=== PATIENT | male | born 1975 | race Caucasian/White ===

== ENCOUNTER 2019-01-10 15:11 | Emergency (ER) | payer MEDICAID, OTHER ==
[2019-01-10 15:44] VITALS: BP 138/84
--- NOTE | 2019-01-10 16:44 | UC ---
Knee Pain HPI - HPI Summary HPI Summary: 6 MONTH AGO PT WAS WALKING DOWN SOME STEPS WHEN HE FELT "A RUBBER BAND SNAPPED" OVER THE INSIDE OF HIS RIGHT KNEE. THAT REMAINED UNCOMFORTABLE FOR ABOUT 3 DAYS THEN SEEMED BETTER. AROUND 2017, HE SQUATTED AND UPON STANDING, HE GOT PAIN TO HIS R INNER KNEE. HE HAS HAD SOME DISCOMFORT EVER SINCE. THE KNEE WILL SOMETIMES GIVE OUT. HE ADMITS TO A SENSE OF LOCKING AT TIMES WELL. HE HAS AN OTC KNEE WRAP WHICH SEEMS TO HELP. - History of Current Complaint Chief Complaint: UCLowerExtremity Stated Complaint: RIGHT KNEE PAIN Time Seen by Provider: 01/10/19 16:33 Hx Obtained From: Patient Pain Intensity: 2 Aggravating Factor(s): Movement, Weight Bearing Able to Bear Weight: Yes - Allergies/Home Medications Allergies/Adverse Reactions: Allergies Allergy/AdvReac Type Severity Reaction Status Date / Time No Known Allergies Allergy Verified 01/10/19 15:36 Home Medications: Home Medications Aspirin EC TAB* [Ecotrin EC Low Dose 81 MG*] 1 tab DAILY 01/10/19 [History Confirmed 01/10/19] PMH/Surg Hx/FS Hx/Imm Hx Cardiovascular History: Hypertension, Myocardial Infarction Other History Of: Negative For: Anticoagulant Therapy - Surgical History Surgical History: Yes Surgery Procedure, Year, and Place: age 11, OPEN REDUCTION INTERNAL FIXATION RIGHT RADIUS, [facility] - Family History Known Family History: Positive: Non-Contributory - Social History Alcohol Use: Occasionally Alcohol Amount: MONTHLY Substance Use Type: Marijuana Substance Use Comment - Amount & Last Used: MARIJUANA; 01/10/19 Smoking Status (MU): Former Smoker Type: Cigarettes Have You Smoked in the Last Year: No Household Exposure Type: Cigarettes - Immunization History Most Recent Influenza Vaccination: refused Most Recent Tetanus Shot: unk Most Recent Pneumonia Vaccination: never Review of Systems All Other Systems Reviewed And Are Negative: No Constitutional: Negative: Fever Musculoskeletal: Negative: Decreased ROM, Edema Neurological: Negative: Paresthesia, Numbness Physical Exam Triage Information Reviewed: Yes Appearance: Well-Appearing Vital Signs: Initial Vital Signs Temp 98 F 01/10/19 15:38 Pulse 79 01/10/19 15:38 Resp 16 01/10/19 15:38 BP 138/84 01/10/19 15:38 Pulse Ox 96 01/10/19 15:38 Vital Signs Reviewed: Yes Eyes: Positive: Conjunctiva Clear Neck: Positive: Supple Respiratory: Positive: No respiratory distress Cardiovascular: Positive: RRR Musculoskeletal: Positive: Other: - RLE COMPARED TO LLE: SLIGHT SWELLING TO MEDIAL R KNEE. RLE=HIP, ANKLE AND FOOT ARE NON TENDER. R KNEE=TENDER OVER MEDIAL JOINT LINE, MCL AND MEDIAL/PROXIMAL TIBIAL TUBEROSITY. PATELLA NOT BALLOTABLE AND NO GRIND. ROM IS INTACT BUT PT C/O PAIN WITH FULL FLEXION AND FULL EXTENSION. THERE IS NOT OVERT LIGAMENT INSTABILITY BUT PT C/O PAIN THE MCL WITH STRESSING. Neurological: Positive: Alert Psychological: Positive: Age Appropriate Behavior Skin Exam: Normal Skin: Negative: Rashes Knee Pain Course/Dx - Differential Dx/Diagnosis Differential Diagnosis/HQI/PQRI: Other - NO CONCERN FOR FX OR INFECTION. HX AND PE RAISE CONCERN FOR A MENISCAL INJURY, MCL INJURY AND POSSIBLE PER ANSERINE BURSITIS. WILL TX WITH NSAID, LILLIE AND CRUTCHES PLUS ORTHOPEDIC F/U. XRAY NOT DONE DUE TO NO ACUTE INJURY. Provider Diagnosis: Right knee pain Discharge - Sign-Out/Discharge Documenting (check all that apply): Patient Departure All imaging exams completed and their final reports reviewed: No Studies - Discharge Plan Condition: Stable Disposition: HOME Prescriptions: Naproxen [Naprosyn 500 mg tab] 500 mg PO BID 5 Days #10 tablet Patient Education Materials: Knee Pain (ED) Referrals: Umang Ledezma MD [Medical Doctor] - As Soon As Possible Additional Instructions: USE LILLIE DURING DAY, REMOVE AT BEDTIME. USE CRUTCHES UNTIL CLEARED. - Billing Disposition and Condition Condition: STABLE Disposition: Home - Attestation Statements Provider Attestation: Patient not seen by me. I was available for consult. I did not disposition this patient
== END 2019-01-10 17:11 | disposition home or self-care (01) ==
LOC: UCCORT 15:11
DX: M25.561 Pain in right knee (principal); I10 Essential (primary) hypertension; I25.2 Old myocardial infarction; Z87.891 Personal history of nicotine dependence; Z79.82 Long term (current) use of aspirin
CPT/HCPCS: 99212; G0463

== ENCOUNTER 2019-02-28 07:51 | Day surgery (SDC) | payer OTHER ==
[~2019-02-28 07:51] MED LIST: Buffered Lidocaine 1% SYRIN* 1 ML/SYRINGE INTRADERM ONE; Dexamethasone IV* 4 MG/ML 1 ML (4 MG) IV SLOW PU ONE; Dexamethasone IV* 4 MG/ML 1 ML (4 MG) ONE; Famotidine IV* 10 MG/ML 2 ML (20 mg) IV ONE; Famotidine IV* 10 MG/ML 2 ML (20 mg) ONE; Lactated Ringers 1000 ML Bag* 1,000 ML IV SCH
[2019-02-28] MEDS ORDERED: ceFAZolin 2 GM PREMIX in ORs 2 GM/50 ML BAG ONE (07:59)
[2019-02-28] MEDS ORDERED: Lidocaine 1%* 5 ML VIAL ONE (08:42)
[2019-02-28] MEDS ORDERED: Phenylephrine OPHTH SOL 2.5%* 2 ML ONE (08:42)
[2019-02-28] MEDS ORDERED: acetaZOLAMIDE TAB* 250 MG ONE (08:42)
[2019-02-28] MEDS ORDERED: Tropicamide 1% OPTH.SOL* BTL ONE (08:42)
[2019-02-28] MEDS ORDERED: Neomycin/Polymy/Dex OPHTH.OIN* 3.5 GM ONE (08:42)
[2019-02-28] MEDS ORDERED: Povidone Iodine 5% OPTH* 30 ML BTL ONE (08:42)
[2019-02-28] MEDS ORDERED: Cyclopentolate 1% OPTH.SOL* 2 ML BTL ONE (08:42)
[2019-02-28] MEDS ORDERED: Ketorolac 0.5% OPHTH (NF) 0.5 % 5 ML BTL ONE (08:42)
[2019-02-28] MEDS ORDERED: Tetracaine 0.5% OPTH.SOL 4 ML* 1 DROP BTL ONE (08:42)
[2019-02-28] MEDS ORDERED: Ropivacaine 0.2% * 2 MG/ML VIAL ONE (09:42)
[2019-02-28] MEDS ORDERED: Lidocaine 1% MPF wEPI 200,000* 30 ML SDV ONE (09:42)
[2019-02-28] MEDS ORDERED: Midazolam* 1 MG/ML 2 ML VIAL (2 MG) ONE (09:49)
[2019-02-28] MEDS ORDERED: fentaNYL* 50 MCG/ML 2 ML VIAL (100 MCG VIAL) ONE ×2 (09:49→10:30)
[2019-02-28] MEDS ORDERED: Propofol* 10 MG/ML 20 ML BTL ONE (09:51)
[2019-02-28] MEDS ORDERED: Lidocaine 2% PF * 5 ML VIAL ONE (09:51)
[2019-02-28] MEDS ORDERED: Ondansetron INJ* 2 MG/ML VIAL ONE (09:51)
[2019-02-28] MEDS ORDERED: DiMENhydriNATE IV* 50 MG/ML VIAL IV PUSH PRN (09:57)
[2019-02-28] MEDS ORDERED: Naloxone* 0.4 MG/ML 1 ML VIAL IV PRN (09:57)
[2019-02-28] MEDS ORDERED: fentaNYL* 50 MCG/ML 2 ML VIAL (100 MCG VIAL) IV PRN (09:57)
[2019-02-28] MEDS ORDERED: Aspirin EC TAB* 81 MG TAB.EC PO ONE (09:58)
[2019-02-28] MEDS ORDERED: Aspirin 81 mg CHEW TAB* 81 MG TAB.CHEW ONE (11:29)
[2019-02-28] MEDS ORDERED: Acetaminophen TAB* 325 MG ONE (11:30)
--- NOTE | 2019-02-28 12:12 | OP ---
OPERATIVE REPORT: DATE OF OPERATION: 02/28/19 DATE OF : 71 SURGEON: Nathanael Davis MD DIRECTOR OF INFECTION CONTROL: None available. PRE-OP DIAGNOSIS: Right knee medial meniscus displaced tear. POST-OP DIAGNOSIS: Right knee medial meniscus displaced tear. OPERATIVE PROCEDURE: Right knee arthroscopy with partial medial meniscectomy and chondroplasty of the patella and medial aspect of the medial femoral condyle as well as synovectomy of the anterior, medial, and lateral compartments. COMPLICATIONS: None. ESTIMATED BLOOD LOSS: Minimal. INDICATIONS: Jonatan Winn is a 43-year-old male who sustained injury to his right knee in May. When he slipped off the floor, she had persistent pain , catching, and locking sensation. He failed conservative measures including physical therapy, antiinflammatories, ice and heat. He has elected to proceed with surgical treatment. Risks and benefits were discussed at length including , but not limited to bleeding, infection, damage to nerves, vessels, surrounding structures, wound healing, persistent pain, need for further surgery , scarring, stiffness, incomplete relief of symptoms, risk of anesthesia. The patient also has a previous cardiac history, underwent risk optimization by doctors. DESCRIPTION OF PROCEDURE: The patient was greeted in the preoperative area by the attending surgeon. Correct extremity was marked and consent was confirmed. The patient was brought back to the operating suite, where he was placed in supine position on the operating table and underwent general anesthesia and LMA intubation, after which he was appropriately positioned in bed. The lateral post was positioned. The unsterile tourniquet was placed high on the proximal thigh. The right leg was then prepped and draped in the usual sterile fashion beginning with chlorhexidine soap, scrub, and alcohol wipe and a final prep with ChloraPrep. After appropriate surgical pause indicating side, site, procedure, administration of antibiotics, the knee was intraarticularly injected with 1% lidocaine with epi. The lateral portal was made in an outside-in fashion. The anterolateral portal was made using an 11 blade. The scope was brought into the joint and examined. There was abundant synovitis that was present. The anteromedial portal was then established after using an 18 gauge for localization. Shaver was used to remove the abundant significant fat pad that was present and synovitis. There was plica laterally as well as medially. Shaver was used to debride this back. He had a small prepatellar bursa as well , which was definitely inflated or became saturated with water as well. The ACL and PCL were intact. There was abundant synovitic tissue and electrocautery device was used to maintain hemostasis at all times. The patellofemoral joint had grade 0 to 1 changes except for the medial aspect had small area of grade 2 changes. This was debrided back using shaver. Medial and lateral gutters were intact. This was exposed after finally removing abundant synovitis and plica. The scope was brought into the medial compartment. There was evidence of a parrot-beak tear. It was snapped and tied into the gutter. The biters and ovi were used to debride this back. He lost approximately 35% to 40% of the meniscus. It was extended to the shaver. Biters were used to debride this back. Once this was complete, it was probed and the remainder of the meniscus was found to be intact. There was a small area in the weightbearing zone about the medial aspect of the medial femoral condyle with grade 2 changes. This was debrided back using a shaver. The ACL and PCL were intact. The knee was placed in [id number] position. The lateral femoral condyle had grade 1 to 2 changes. Lateral plateau had grade 2 changes. Lateral meniscus was intact without significant wear. All fluid . Once the debridement was complete and hemostasis was maintained, the knee was then thoroughly lavaged, removed of any loose debris. The wounds were then copiously irrigated with sterile saline. Portals were closed with 3-0 nylon. Sterile dressings were applied. The knee was intraarticularly and superficially injected with 0.2% ropivacaine. The patient was then awoken from anesthesia and transferred to PACU in stable condition. POSTOPERATIVE PLAN: He will be weightbearing as tolerated with crutches for the first 4 to 5 days, discharged on pain medication. DVT prophylaxis was considered but deferred due to no previous personal or family history. I will put him on a large aspirin for the first 2 weeks. I will see the patient back in 10 to 14 days. [id number]/[facility] #: [id number] ROBBY
[2019-02-28 12:33] VITALS: BP 112/77
== END 2019-02-28 12:30 | disposition home or self-care (01) ==
LOC: OREAST 07:51
PROVIDERS: ATTEND Orthopaedic Surgery
DX: S83.241A Other tear of medial meniscus, current injury, right knee, initial encounter (principal); W01.0XXA Fall on same level from slipping, tripping and stumbling without subsequent striking against object, initial encounter; Y92.008 Other place in unspecified non-institutional (private) residence as the place of occurrence of the external cause; I25.10 Atherosclerotic heart disease of native coronary artery without angina pectoris; I25.2 Old myocardial infarction; Z95.5 Presence of coronary angioplasty implant and graft; Z87.891 Personal history of nicotine dependence
CPT/HCPCS: A9270-GY; J0690; J1100; J2001; J2250; J2405; J2704; J2795; J3010

== ENCOUNTER 2019-06-04 13:52 | Emergency (ER) | payer OTHER ==
[2019-06-04 14:04] VITALS: BP 132/89
--- NOTE | 2019-06-04 14:19 | UC ---
Knee Pain HPI - HPI Summary HPI Summary: Patient is a 44yo male presenting with right knee pain after slipping on a wet mat at work. He states he did not fall but he "tweaked" his knee when he caught himself. He has a history of problems with that knee and says he has a history of surgeries on that knee. He says since he has had recent surgeries on this knee that he does normally have decreased strength and residual pain. He complains of more pain on the lateral aspect of his knee since slipping on the mat. Describes pain as sharp and rates it 3/10. He is able to walk and bear weight. He does not think he broke it. - History of Current Complaint Chief Complaint: UCLowerExtremity Stated Complaint: KNEE INJURY Time Seen by Provider: 06/04/19 14:02 Hx Obtained From: Patient Onset/Duration: Sudden Onset, Lasting Hours Severity Initially: Mild Severity Currently: Mild Pain Intensity: 3 Pain Scale Used: 0-10 Numeric Alleviating Factor(s): Rest Associated Signs And Symptoms: Negative: Swelling, Redness, Bruising, Numbness, Tingling Able to Bear Weight: Yes - Allergies/Home Medications Allergies/Adverse Reactions: Allergies Allergy/AdvReac Type Severity Reaction Status Date / Time latex Allergy Itching Verified 06/04/19 14:05 Home Medications: Home Medications NK [No Home Medications Reported] 06/04/19 [History Confirmed 06/04/19] PMH/Surg Hx/FS Hx/Imm Hx Other History Of: Negative For: Anticoagulant Therapy - Surgical History Surgical History: Yes Surgery Procedure, Year, and Place: age 11, OPEN REDUCTION INTERNAL FIXATION RIGHT RADIUS, [facility]. [facility] RE[facility]; HEART ATTACK-STENT PLACED. meiscus tear on r knee scoped - Family History Known Family History: Positive: Non-Contributory - Social History Alcohol Use: Occasionally Alcohol Amount: MONTHLY Substance Use Type: Marijuana Substance Use Comment - Amount & Last Used: MARIJUANA; 01/10/19 Smoking Status (MU): Former Smoker Type: Cigarettes Have You Smoked in the Last Year: No When Did the Patient Quit Smoking/Using Tobacco: 2016 Household Exposure Type: Cigarettes - Immunization History Most Recent Influenza Vaccination: refused Most Recent Tetanus Shot: unk Most Recent Pneumonia Vaccination: never Review of Systems All Other Systems Reviewed And Are Negative: No Constitutional: Positive: Negative Skin: Positive: Negative. Negative: Bruising Motor: Positive: Weakness - right knee Neurovascular: Negative: Decreased Sensation Musculoskeletal: Positive: Arthralgia - rt knee, Decreased ROM - right knee, Edema - right anterior knee Neurological: Negative: Paresthesia, Numbness Physical Exam Triage Information Reviewed: Yes Appearance: Well-Appearing, No Pain Distress, Well-Nourished Vital Signs: Initial Vital Signs Temp 98 F 06/04/19 14:02 Pulse 85 06/04/19 14:02 Resp 17 06/04/19 14:02 BP 132/89 06/04/19 14:02 Pulse Ox 100 06/04/19 14:02 Vital Signs Reviewed: Yes Musculoskeletal Exam: Other - tenderness to palpation of LCL of right knee Musculoskeletal: Positive: No Edema, Strength Limited @ - right lower leg due to pain, ROM Limited @ - right leg flexion and right foot dosriflexion due to pain Neurological Exam: Normal - sensation of LLE intact Skin Exam: Normal Knee Pain Course/Dx - Course Course Of Treatment: Non traumatic injury iscussed with low concern for fracture was discussed with the patient. He was instructed to use rest, ice, compression, elevation, and over the counter pain medications for treatment of knee sprain. Patient told to follow up with his orthopedic doctor or the referred orthopedist as listed below for further evaluation. Patient voiced understanding and agreed to treatment plan. - Differential Dx/Diagnosis Provider Diagnosis: Knee sprain Discharge ED - Sign-Out/Discharge Documenting (check all that apply): Patient Departure All imaging exams completed and their final reports reviewed: No Studies - Discharge Plan Condition: Stable Disposition: HOME Patient Education Materials: Knee Sprain (ED) Forms: *Work Release Referrals: Zuhair Webber MD [Medical Doctor] - Juan Roman MD [Medical Doctor] - Additional Instructions: You may use rest, ice, compression, elevation, and over the counter pain medications for treatment of knee sprain. Follow up with your orthopedic doctor or the referred orthopedist as listed below for further evaluation. - Billing Disposition and Condition Condition: STABLE Disposition: Home
== END 2019-06-04 14:33 | disposition home or self-care (01) ==
LOC: UCEAST 13:52
DX: S83.91XA Sprain of unspecified site of right knee, initial encounter (principal); W01.0XXA Fall on same level from slipping, tripping and stumbling without subsequent striking against object, initial encounter; Y92.89 Other specified places as the place of occurrence of the external cause; Z91.040 Latex allergy status; Z87.891 Personal history of nicotine dependence
CPT/HCPCS: 99211; G0463

== ENCOUNTER 2019-06-27 11:47 | Emergency (ER) | payer OTHER ==
[2019-06-27 12:42] VITALS: BP 113/71
--- NOTE | 2019-06-27 13:33 | UC ---
Respiratory Complaint HPI - HPI Summary HPI Summary: 44-year-old male presents to urgent care reporting onset of nasal congestion, postnasal drip, and a productive cough this morning. Denies fever, chills, ear pain, sore throat, chest pain, or shortness of breath. - History of Current Complaint Chief Complaint: UCRespiratory Stated Complaint: COUGH Time Seen by Provider: 06/27/19 12:47 Hx Obtained From: Patient Pain Intensity: 0 - Allergies/Home Medications Allergies/Adverse Reactions: Allergies Allergy/AdvReac Type Severity Reaction Status Date / Time latex Allergy Itching Verified 06/27/19 12:37 Home Medications: Home Medications Aspirin EC TAB* [Ecotrin EC Low Dose 81 MG*] 81 mg PO DAILY 06/27/19 [History Confirmed 06/27/19] PMH/Surg Hx/FS Hx/Imm Hx Previously Healthy: Yes Cardiovascular History: Cardiac Disease, Myocardial Infarction Other History Of: Negative For: Anticoagulant Therapy - Surgical History Surgical History: Yes Surgery Procedure, Year, and Place: Right Knee Arthroscopy, 02/28/19; Coranary Artery Stent s/p [place], 2015, [place]; Umbilical Herniorrhaphy, ~2013, [place]; Right Radius ORIF, ~1985, [place] - Family History Known Family History: Positive: Non-Contributory - Social History Occupation: Employed Full-time Lives: With Family Alcohol Use: Occasionally Alcohol Amount: MONTHLY Substance Use Type: Marijuana Substance Use Comment - Amount & Last Used: MARIJUANA; 01/10/19 Smoking Status (MU): Former Smoker Type: Cigarettes Have You Smoked in the Last Year: No When Did the Patient Quit Smoking/Using Tobacco: 2016 Household Exposure Type: Cigarettes - Immunization History Most Recent Influenza Vaccination: refused Most Recent Tetanus Shot: unk Most Recent Pneumonia Vaccination: never Review of Systems All Other Systems Reviewed And Are Negative: Yes Constitutional: Negative: Fever, Chills Skin: Positive: Negative Eyes: Negative: Drainage, Eye Redness ENT: Positive: Nasal Discharge, Sinus Congestion. Negative: Sore Throat, Ear Ache, Sinus Pain/Tenderness Respiratory: Positive: Cough. Negative: Shortness Of Breath Cardiovascular: Negative: Palpitations, Chest Pain Gastrointestinal: Positive: Negative Genitourinary: Positive: Negative Musculoskeletal: Positive: Negative Neurological: Positive: Negative Is Patient Immunocompromised?: No Physical Exam - Summary Physical Exam Summary: GENERAL APPEARANCE: Well developed, well nourished, alert and cooperative, and appears to be in no acute distress. EYES: Conjunctiva clear. No drainage. EARS: External auditory canals and tympanic membranes clear, hearing grossly intact. NOSE: Mild nasal congestion. No nasal discharge. THROAT: Pharynx normal. No tonsilar inflammation, swelling, exudate, or lesions. Uvula midline. NECK: Neck supple, non-tender without lymphadenopathy. CARDIAC: Normal S1 and S2. No S3, S4 or murmurs. Rhythm is regular. There is no peripheral edema, cyanosis or pallor. Extremities are warm and well perfused. Capillary refill is less than 2 seconds. Peripheral pulses intact. LUNGS: Clear to auscultation without rales, rhonchi, wheezing or diminished breath sounds. Dry, non-productive cough. ABDOMEN: Positive bowel sounds. Soft, nondistended, nontender. No guarding or rebound. No masses or hepatosplenomegally. MUSKULOSKELETAL: ROM intact to all extremities. No joint erythema or tenderness. Normal muscular development. Normal gait. SKIN: Skin normal color, texture and turgor with no lesions or eruptions. Triage Information Reviewed: Yes Vital Signs: Initial Vital Signs Temp 97.9 F 06/27/19 12:34 Pulse 62 06/27/19 12:34 Resp 16 06/27/19 12:34 BP 113/71 06/27/19 12:34 Pulse Ox 99 06/27/19 12:34 Vital Signs Reviewed: Yes Respiratory Course/Dx - Course Course Of Treatment: 44-year-old male presents to urgent care reporting onset of nasal congestion, postnasal drip, and a productive cough this morning. Denies fever, chills, ear pain, sore throat, chest pain, or shortness of breath. Afebrile. Vital signs stable. Patient had mild nasal congestion, clear breath sounds, dry nonproductive cough, and otherwise unremarkable exam. Discussed that his symptoms were likely an acute bronchitis of viral origin and I'm recommending symptomatic treatment at this time including Tessalon Perles one capsule every 8 hours as needed for cough. Patient has an appointment scheduled with his primary in 2 days and he was encouraged to keep this appointment for recheck of symptoms. Anticipatory guidance and warning symptoms were reviewed with the patient. Verbalizes understanding and agrees with plan of care. - Differential Dx/Diagnosis Differential Diagnosis/HQI/PQRI: Bronchitis, Lower Resp Infection, Other - URI Provider Diagnosis: Acute bronchitis Discharge ED - Sign-Out/Discharge Documenting (check all that apply): Patient Departure All imaging exams completed and their final reports reviewed: No Studies - Discharge Plan Condition: Stable Disposition: HOME Prescriptions: Benzonatate CAP* [Tessalon 100 MG CAP*] 100 mg PO TID PRN #21 cap PRN Reason: Cough Patient Education Materials: Acute Bronchitis (ED) Forms: *Work Release Referrals: Jessie Arellano MD [Primary Care Provider] - (Keep your appointment as scheduled for recheck of symptoms) Additional Instructions: Your history and exam are consistent with acute bronchitis which is most often caused by a viral infection. Viral infections do not respond to antibiotics and are limited to the treatment of symptoms. Viral infections typically run their course in 7-10 days. Get plenty of rest. Drink plenty of fluids. Run a cool mist humidifer in your room at night. Take over the counter acetaminophen (Tylenol) or ibuprofen (Advil, Motrin) according to directions as needed for pain or fever. Use an over the counter decongestant such as Sudafed according to directions as needed for congestion. Take Tessalon Perles 1 cap every 8 hours as needed for cough. Follow up with your primary care provider as scheduled on 06/29/2019 for recheck of symptoms. Seek immediate medical attention in the emergency room if you have fever greater than 100.5 F despite taking acetaminophen or ibuprofen, have chest pain , difficulty breathing, or have any worsening of symptoms. - Billing Disposition and Condition Condition: STABLE Disposition: Home
== END 2019-06-27 13:51 | disposition home or self-care (01) ==
LOC: UCCORT 11:47
DX: J20.9 Acute bronchitis, unspecified (principal); R09.81 Nasal congestion; R09.82 Postnasal drip; Z91.040 Latex allergy status; Z79.82 Long term (current) use of aspirin; Z87.891 Personal history of nicotine dependence
CPT/HCPCS: 99212; G0463

== ENCOUNTER 2019-10-17 13:14 | Emergency (ER) | payer OTHER ==
[2019-10-17 13:26] VITALS: BP 122/84
--- NOTE | 2019-10-17 13:29 | UC ---
FLU HPI - HPI Summary HPI Summary: 44 y/o male presents to the urgent care c/o fatigue, body aches, FINE, nausea and subjective low grade fever since this morning. He works at [employer] and he has been exposed to people w/ the flu. He thinks he may have the flu. Mild nasal congestion w/ clear nasal discharge. This morning he took his ASA to alleviate symptoms. Now he feels nausea, but not vomiting. FINE is 4/10. Pt denies sore throat, cough, wheezing, SOB, chest pain, abdominal pain, dizziness , V/D. He ate breakfast well this morning, w/ normal BM and drinking fluids. - History of Current Complaint Chief Complaint: UCGeneralIllness Stated Complaint: NAUSEA HEADACHE FEVER Time Seen by Provider: 10/17/19 13:23 Hx Obtained From: Patient Onset/Duration: Gradual Onset, Lasting Hours - 10hrs, Still Present Severity Currently: Mild Severity Initially: Mild Pain Intensity: 4 Pain Scale Used: 0-10 Numeric Associated Signs & Symptoms: Positive: Fever - subjective at home, Myalgia, Nasal Congestion - clear, Headache. Negative: Cough, Sore Throat, Vomiting, Diarrhea Related Hx: Possible Flu/Infectious Exposure - at work - Risk Factors Influenza Risk Factors: Negative - Allergy/Home Medications Allergies/Adverse Reactions: Allergies Allergy/AdvReac Type Severity Reaction Status Date / Time latex Allergy Itching Verified 10/17/19 13:26 PMH/Surg Hx/FS Hx/Imm Hx Previously Healthy: Yes Endocrine History: Dyslipidemia - diet control Cardiovascular History: Myocardial Infarction - 3 years ago Other History Of: Negative For: Anticoagulant Therapy - Surgical History Surgical History: Yes Surgery Procedure, Year, and Place: Right Knee Arthroscopy, 02/28/19; Coranary Artery Stent s/p MA, 2015, [place]; Umbilical Herniorrhaphy, ~2013, [place]; Right Radius ORIF, ~1985, [place]. DVT scans - Family History Known Family History: Positive: Cardiac Disease - Social History Occupation: Employed Full-time Lives: With Family Alcohol Use: Occasionally Alcohol Amount: MONTHLY Substance Use Type: Marijuana Substance Use Comment - Amount & Last Used: MARIJUANA; 01/10/19 Smoking Status (MU): Former Smoker Type: Cigarettes Have You Smoked in the Last Year: No When Did the Patient Quit Smoking/Using Tobacco: 2016 Household Exposure Type: Cigarettes - Immunization History Most Recent Influenza Vaccination: refused Most Recent Tetanus Shot: unk Most Recent Pneumonia Vaccination: never Review of Systems All Other Systems Reviewed And Are Negative: Yes Constitutional: Positive: Fever - subjective at home, Chills, Fatigue, Other - body aches Skin: Positive: Negative Eyes: Positive: Negative ENT: Positive: Nasal Discharge - clear. Negative: Sore Throat Respiratory: Positive: Negative Cardiovascular: Positive: Negative Gastrointestinal: Positive: Nausea Genitourinary: Positive: Negative Motor: Positive: Negative Neurovascular: Positive: Negative Musculoskeletal: Positive: Myalgia Neurological: Positive: Headache Psychological: Positive: Negative Is Patient Immunocompromised?: No Physical Exam - Summary Physical Exam Summary: VITAL SIGNS: Reviewed. GENERAL: Patient is a well developed and nourished male who is sitting comfortably in the examining table. Patient is not in any acute respiratory distress. HEAD AND FACE: No signs of trauma. No ecchymosis, hematomas or skull depressions. No sinus tenderness. EYES: PERRLA, EOMI x 2, No injected conjunctiva, no nystagmus. No photophobia. EARS: Hearing grossly intact. Ear canals and tympanic membranes are within normal limits. MOUTH: Positive pharynx with mild erythema, no exudates, No B/L tonsillar enlargement , no exudate. Uvula in midline. edematous nasal mucosa w/ clear nasal discharge, clear PND NECK: Supple, trachea is midline, Positive anterior cervical lymphadenopathy, no JVD, no carotid bruit, no c-spine tenderness, neck with full ROM. No meningeal signs, no Kernig's or brudzinskis signs. CHEST: Symmetric, no tenderness at palpation LUNGS: Clear to auscultation bilaterally. No wheezing or crackles. CVS: Regular rate and rhythm, S1 and S2 present, no murmurs or gallops appreciated. ABDOMEN: Soft, non-tender. No signs of distention. No rebound no guarding, and no masses palpated. Bowel sounds are normal. EXTREMITIES: FROM in all major joints, no edema, no cyanosis or clubbing. NEURO: Alert and oriented x 3. No acute neurological deficits. Pt follows commands. SKIN: Dry and warm Triage Information Reviewed: Yes Vital Signs: Initial Vital Signs Temp 98.8 F 10/17/19 13:23 Pulse 73 10/17/19 13:23 Resp 18 10/17/19 13:23 BP 122/84 10/17/19 13:23 Pulse Ox 99 10/17/19 13:23 Flu Course/Dx - Course Course Of Treatment: 44 y/o male presents to the urgent care c/o fatigue, body aches, FINE, nausea and subjective low grade fever since this morning. He works at [employer] and he has been exposed to people w/ the flu. He thinks he may have the flu. Mild nasal congestion w/ clear nasal discharge. This morning he took his ASA to alleviate symptoms. Now he feels nausea, but not vomiting. FINE is 4/10. Pt denies sore throat, cough, wheezing, SOB, chest pain, abdominal pain, dizziness , V/D. He ate breakfast well this morning. Hx obtained. Pt is hemodynamically stable, A&Ox3, VS: WNL. Pt w/ nausea and viral syndrome on examination. RApid Influenza A&B ordered: result: negative. Pt given at the clinic ibuprofen PO and Zofran PO by the nurse to alleviates symptoms. Pt tolerated well medication and felt better. Pt Advised on hand washing. Pt advised to rest, increase fluid intake, eat well and avoid strenuous exercise. If symptoms do not improve or worsen advised to return to the urgent care or f/u with her PCP for further evaluation and treatment. Pt understood and agreed with plan of care. - Differential Dx/Diagnosis Differential Diagnosis/HQI/PQRI: Bronchitis, Influenza, Pneumonia, Upper Respiratory Infection Provider Diagnosis: Viral syndrome Discharge ED - Sign-Out/Discharge Documenting (check all that apply): Patient Departure - D/C home All imaging exams completed and their final reports reviewed: No Studies - Discharge Plan Condition: Stable Disposition: HOME Prescriptions: Acetaminophen TAB* [Tylenol TAB*] 650 mg PO Q6H PRN #30 tab PRN Reason: Pain - Moderate Ondansetron ODT TAB* [Zofran 4 MG Odt TAB*] 4 mg PO Q8H PRN #9 tab.odt PRN Reason: Nausea/Vomiting Patient Education Materials: Viral Syndrome (ED) Forms: *Work Release Referrals: Jessie Arellano MD [Primary Care Provider] - 2 Days Additional Instructions: 1-Please take ibuprofen PO q6-8hrs prn as instructed after meals to alleviate pain and swelling. Increase fluid intake, eat well, rest and avoid strenuous exercise 2-If symptoms do not improve or worsen please return to the urgent care or f/u with your PCP in 2 days for further evaluation and treatment. - Billing Disposition and Condition Condition: STABLE Disposition: Home
[2019-10-17] MEDS ORDERED: Ondansetron ODT TAB* 4 MG PO ONE (13:38)
[2019-10-17] MEDS ORDERED: Ibuprofen TAB* 600 MG PO ONE (13:38)
[2019-10-17 13:46] LABS: Influenza A Molecular NEGATIVE (Negative); Influenza B Molecular NEGATIVE (Negative)
== END 2019-10-17 14:28 | disposition home or self-care (01) ==
LOC: UCEAST 13:14
DX: B34.9 Viral infection, unspecified (principal); R53.83 Other fatigue; M79.10 Myalgia, unspecified site; R51 Headache; R11.0 Nausea; R09.81 Nasal congestion; R68.83 Chills (without fever); E78.5 Hyperlipidemia, unspecified; R09.89 Other specified symptoms and signs involving the circulatory and respiratory systems; Z91.040 Latex allergy status; Z87.891 Personal history of nicotine dependence
CPT/HCPCS: 99212; A9270-GY; G0463